=== PATIENT | male | born 1990 | race Caucasian/White ===

== ENCOUNTER 2017-02-24 20:28 | Emergency (ER) | payer BC, OTHER ==
[2017-02-24 20:35] VITALS: BP 137/97
--- NOTE | 2017-02-24 21:21 | EDM.PDOC ---
ED HPI GENERAL MEDICAL PROBLEM - General Chief Complaint: Genitourinary Problem Stated Complaint: GOT HIT BY A GATE AT WORK [id number] Time Seen by Provider: 02/24/17 21:05 Source of Information: Reports: Patient History Limitations: Reports: No limitations - History of Present Illness INITIAL COMMENTS - FREE TEXT/NARRATIVE: This 26 yo male patient reports to the ED with pain in his left groin and testicle. 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 The patient reports the gate hit him in the left groin and scrotum. The patient reports the injury happened at about 1400 today (7 hours ago). The patient has attempted to rest and ice the area, but his pain has continued. Onset: today Onset Date: 02/24/17 Onset Time: 14:00 Duration: Constant, Getting worse Location: Reports: other (left groin) Quality: Reports: Ache, Dull Severity: moderate Improves with: Reports: Rest Worsens with: Reports: Movement Treatments NEURODIAGNOSTIC TECH: Reports: Cold therapy Left Groin Pain Score (Numeric/FACES): 5 - Related Data Allergies Allergy/AdvReac Type Severity Reaction Status Date / Time No Known Allergies Allergy Verified 02/24/17 20:35 Home Meds: Home Meds LORazepam [Ativan] 1 mg PO Q8H PRN 02/24/17 [History] Venlafaxine [Effexor XR 24 Hr] 225 mg PO DAILY 02/24/17 [History] busPIRone [Buspar] 15 mg PO BID 02/24/17 [History] Past Medical History Psychiatric History: Reports: Anxiety - Past Surgical History HEENT Surgical History: Reports: Other (see below) Other HEENT Surgeries/Procedures: right ear surgery Social & Family History - Tobacco Use Smoking Status *Q: Never Smoker Second Hand Smoke Exposure: No - Recreational Drug Use Recreational Drug Use: No ED ROS GENERAL - Review of Systems Review Of Systems: ROS reveals no pertinent complaints other than HPI. ED EXAM, RENAL/ - Physical Exam Exam: See Below Exam Limited By: No limitations General Appearance: alert, WD/WN, moderate distress Eye Exam: bilateral eye: EOMI, normal inspection, PERRL Ears: normal external exam, normal canal, hearing grossly normal, normal TMs Nose: normal inspection, normal mucosa, no blood Throat/Mouth: Normal inspection, Normal lips, Normal teeth, Normal gums, Normal oropharynx, Normal voice, No airway compromise Head: atraumatic, normocephalic Neck: normal inspection, supple, non-tender, full range of motion Respiratory/Chest: no respiratory distress, lungs clear, normal breath sounds, no accessory muscle use, chest non-tender Cardiovascular: normal peripheral pulses, regular rate, rhythm, no edema, no gallop, no JVD, no murmur, no rub GI/Abdominal: Normal Bowel Sounds, Soft, Non-Tender, No Organomegaly, No Distention, No Abnormal Bruit, No Mass, Pelvis Stable (Male) Exam: No hernia, Circumcised, Cremasteric reflex, Scrotal swelling ( left), Scrotum tenderness (L) (left), Testicular tenderness (L) Rectal (Males) Exam: Deferred Back Exam: normal inspection, full range of motion, NT Extremities: normal inspection, normal range of motion, non-tender, normal capillary refill, no pedal edema Neurological: alert, oriented, CN II-XII intact, normal cognition, normal gait, normal reflexes, no motor/sensory deficits Psychiatric: normal affect, normal mood Skin Exam: Warm, Dry, Intact, Normal color, No rash Lymphatic: no adenopathy Course - Vital Signs Last Recorded V/S: Last Vital Signs Temp 36.2 C 02/24/17 20:31 Pulse 86 02/24/17 20:31 Resp 18 02/24/17 20:31 BP 137/97 H 02/24/17 20:31 Pulse Ox 97 02/24/17 20:31 - Orders/Labs/Meds Labs: Laboratory Tests 02/24/17 Range/Units 20:41 Urine Color Other (YELLOW) Urine Appearance Clear (CLEAR) Urine pH 6.0 (5.0-9.0) Ur Specific Mellen 1.010 (1.005-1.030) Urine Protein Negative (NEGATIVE) Urine Glucose (UA) Negative (NEGATIVE) Urine Ketones Negative (NEGATIVE) Urine Occult Blood Negative (NEGATIVE) Urine Nitrite Negative (NEGATIVE) Urine Bilirubin Negative (NEGATIVE) Urine Urobilinogen 0.2 (0.2-1.0) mg/dL Ur Leukocyte Esterase Negative (NEGATIVE) Urine RBC Not seen /HPF Urine WBC Not seen (0-5/HPF) /HPF Ur Epithelial Cells Rare /HPF Departure - Departure Time of Disposition: 22:12 Disposition: Home, Self-Care 01 Condition: good Clinical Impression: Contusion Qualifiers: Encounter type: initial encounter Contusion area: genitourinary tract structure Contusion of genitourinary structure detail: testes Qualified Code(s) : S30.22XA - Contusion of scrotum and testes, initial encounter - Discharge Information Instructions: Contusion, [id number] Forms: ED Department Discharge Care Plan Goals: The patient was advised of the examination, lab and ultrasound results during the visit. The patient was encouraged to rest, ice and elevate (the testicles) over the next 24 hours. The patient may take Tylenol or ibuprofen as directed for temporary symptom relief. If the patient has any additional symptoms or concerns, the patient should follow-up with his primary care facility or return to the emergency department.
== END 2017-02-24 22:26 | disposition home or self-care (01) ==
LOC: DL.ED 20:28
DX: S30.22XA Contusion of scrotum and testes, initial encounter (principal); F41.9 Anxiety disorder, unspecified; Z79.899 Other long term (current) drug therapy; W22.8XXA Striking against or struck by other objects, initial encounter; Y93.89 Activity, other specified
CPT/HCPCS: 76870; 81001; 99284

== ENCOUNTER 2019-12-24 14:51 | Emergency (ER) | payer BC ==
[2019-12-24 15:23] VITALS: BP 143/97; PULSE 89
--- NOTE | 2019-12-24 15:51 | EDM.PDOC ---
ED HPI GENERAL MEDICAL PROBLEM - General Chief Complaint: Laceration Stated Complaint: CUT ON HEAD Time Seen by Provider: 12/24/19 15:47 Source of Information: Reports: Patient History Limitations: Reports: No Limitations - History of Present Illness INITIAL COMMENTS - FREE TEXT/NARRATIVE: cut top of head when walked into a low hanging furnace. no LOC Anterior Head Pain Score (Numeric/FACES): 6 - Related Data Allergies Allergy/AdvReac Type Severity Reaction Status Date / Time No Known Allergies Allergy Verified 12/24/19 15:30 Home Meds: Home Meds LORazepam [Ativan] 1 mg PO Q8H PRN 02/24/17 [History] Venlafaxine [Effexor XR 24 Hr] 225 mg PO DAILY 02/24/17 [History] busPIRone [Buspar] 15 mg PO BID 02/24/17 [History] Past Medical History HEENT History: Reports: Impaired Vision Cardiovascular History: Reports: None Respiratory History: Reports: None Gastrointestinal History: Reports: None Genitourinary History: Reports: None Musculoskeletal History: Reports: None Neurological History: Reports: None Psychiatric History: Reports: Anxiety Endocrine/Metabolic History: Reports: None Hematologic History: Reports: None Immunologic History: Reports: None Oncologic (Cancer) History: Reports: None Dermatologic History: Reports: None - Infectious Disease History Infectious Disease History: Reports: None - Past Surgical History Head Surgeries/Procedures: Reports: None HEENT Surgical History: Reports: Other (See Below) Social & Family History - Family History Family Medical History: Noncontributory - Tobacco Use Smoking Status *Q: Never Smoker Second Hand Smoke Exposure: No - Caffeine Use Caffeine Use: Reports: Soda - Recreational Drug Use Recreational Drug Use: No ED ROS GENERAL - Review of Systems Review Of Systems: Comprehensive ROS is negative, except as noted in HPI. ED EXAM, SKIN/RASH Exam: See Below Exam Limited By: No Limitations General Appearance: Alert, WD/WN, No Apparent Distress Eye Exam: Bilateral Eye: PERRL (pupils ER @ 4mm) Ears: Hearing Grossly Normal Throat/Mouth: Normal Voice, No Airway Compromise Head: Other (left parietal lac) Neck: Non-Tender, Full Range of Motion Respiratory/Chest: No Respiratory Distress Cardiovascular: Regular Rate, Rhythm GI/Abdominal: Soft, Non-Tender Neurological: Alert, Oriented, Normal Cognition, Normal Gait, No Motor/Sensory Deficits Psychiatric: Normal Affect, Normal Mood Skin: Warm, Dry, Normal Color Location, Skin: Head ED SKIN PROCEDURES - Laceration/Wound Repair Left Head Appearance: Subcutaneous, Linear, Clean Skin Prep: Chlorhexidine (Hibiciens) Saline Irrigation (cc's): 20 Exploration/Debridement/Repair: Wound Explored, In a Bloodless Field Closed with: Dermabond, [place] Lac/Wound length In cm: 3 (left parietal) # of Sutures: 3 (sravan) Drain Placement: No Sterile Dressing Applied: None Tetanus Status Addressed: Yes Complications: No Course - Vital Signs Last Recorded V/S: Last Vital Signs Temp 36.2 C 12/24/19 15:22 Pulse 89 12/24/19 15:22 Resp 18 12/24/19 15:22 BP 143/97 H 12/24/19 15:22 Pulse Ox 96 12/24/19 15:22 Departure - Departure Time of Disposition: 16:01 Disposition: Home, Self-Care 01 Condition: Good Clinical Impression: Scalp laceration Qualifiers: Encounter type: initial encounter Qualified Code(s): S01.01XA - Laceration without foreign body of scalp, initial encounter - Discharge Information Instructions: Stitches, [place], or Adhesive Wound Closure, [id number] Forms: ED Department Discharge Additional Instructions: 1) keep wound clean and dry 2) don't wash hair for 48 hours 3) wound check if looks infected 4) staple removal 10 days Sepsis Event Note - Evaluation Sepsis Screening Result: No Definite Risk - Focused Exam Vital Signs: Vital Signs Temp Pulse Resp BP Pulse Ox 12/24/19 15:22 36.2 C 89 18 143/97 H 96 Date Exam was Performed: 12/24/19 Time Exam was Performed: 15:59
== END 2019-12-24 16:11 | disposition home or self-care (01) ==
LOC: DL.ED 14:51
DX: S01.01XA Laceration without foreign body of scalp, initial encounter (principal); F41.9 Anxiety disorder, unspecified; Z79.899 Other long term (current) drug therapy; W22.8XXA Striking against or struck by other objects, initial encounter
CPT/HCPCS: 12002; 99282

== ENCOUNTER 2020-11-10 15:51 | Emergency (ER) | payer BC ==
[2020-11-10 17:18] VITALS: BP 142/60; PULSE 74
[2020-11-10 17:49] LABS: CORONAVIRUS COVID-19 NAA NEGATIVE (NEGATIVE)
--- NOTE | 2020-11-10 17:49 | EDM.PDOC ---
ED HPI GENERAL MEDICAL PROBLEM - General Chief Complaint: ENT Problem Stated Complaint: SORE THROAT Time Seen by Provider: 11/10/20 17:46 Source of Information: Reports: Patient History Limitations: Reports: No Limitations - History of Present Illness INITIAL COMMENTS - FREE TEXT/NARRATIVE: ED with c/o sore throat since Wednesday. White patches, in clinic strep negative, Feels worse today harder to swallow and eat. radiates to ears. No cough, No nausea or vomiting. - Related Data Allergies Allergy/AdvReac Type Severity Reaction Status Date / Time No Known Allergies Allergy Verified 12/24/19 15:30 Home Meds: Home Meds LORazepam [Ativan] 1 mg PO Q8H PRN 02/24/17 [History] Venlafaxine [Effexor XR 24 Hr] 225 mg PO DAILY 02/24/17 [History] busPIRone [Buspar] 15 mg PO BID 02/24/17 [History] Past Medical History HEENT History: Reports: Impaired Vision Cardiovascular History: Reports: None Respiratory History: Reports: None Gastrointestinal History: Reports: None Genitourinary History: Reports: None Musculoskeletal History: Reports: None Neurological History: Reports: None Psychiatric History: Reports: Anxiety Endocrine/Metabolic History: Reports: None Hematologic History: Reports: None Immunologic History: Reports: None Oncologic (Cancer) History: Reports: None Dermatologic History: Reports: None - Infectious Disease History Infectious Disease History: Reports: None - Past Surgical History Head Surgeries/Procedures: Reports: None HEENT Surgical History: Reports: Other (See Below) Other HEENT Surgeries/Procedures: right ear surgery Social & Family History - Family History Family Medical History: No Pertinent Family History - Tobacco Use Tobacco Use Status *Q: Never Tobacco User - Caffeine Use Caffeine Use: Reports: None - Recreational Drug Use Recreational Drug Use: No ED ROS ENT - Review of Systems Review Of Systems: Comprehensive ROS is negative, except as noted in HPI. ED EXAM, ENT - Physical Exam Exam: See Below Exam Limited By: No Limitations General Appearance: Alert, Mild Distress Eye Exam: Bilateral Eye: EOMI Ears: Normal External Exam Nose: Normal Inspection Mouth/Throat: Tonsillar Erythema, Tonsillar Exudates, Tonsillar Swelling, Uvular Edema (mild). No: Uvular Deviation Head: Atraumatic, Normocephalic Neck: Lymphadenopathy (L), Lymphadenopathy (R) Respiratory/Chest: No Respiratory Distress, Lungs Clear, Normal Breath Sounds Cardiovascular: Normal Peripheral Pulses, Regular Rate, Rhythm GI/Abdominal: Normal Bowel Sounds Course - Vital Signs Last Recorded V/S: Last Vital Signs Temp 97.5 F 11/10/20 17:11 Pulse 74 11/10/20 17:11 Resp 18 11/10/20 17:11 BP 142/60 H 11/10/20 17:11 Pulse Ox 99 11/10/20 17:11 - Orders/Labs/Meds Labs: Laboratory Tests 11/10/20 Range/Units 17:00 Influenza Type A RNA Negative (NEGATIVE) Influenza Type B RNA Negative (NEGATIVE) SARS-CoV-2 RNA (LIO) Negative (NEGATIVE) Meds: Medications Discontinued Medications Generic Name Dose Route Start Last Admin Trade Name Irma PRN Reason Stop Dose Admin Amoxicillin/Clavulanate Potassium 1 tab 11/10/20 17:59 11/10/20 18:29 Augmentin 875 Mg/125 Mg PO 11/10/20 18:00 1 tab ONETIME ONE Administration Departure - Departure Time of Disposition: 18:00 Disposition: Home, Self-Care 01 Condition: Good Clinical Impression: Tonsillitis - Discharge Information *PRESCRIPTION DRUG MONITORING PROGRAM REVIEWED*: No *COPY OF PRESCRIPTION DRUG MONITORING REPORT IN PATIENT JUAN LUIS: No Instructions: Tonsillitis, [id number] Forms: ED Department Discharge Additional Instructions: increase fluids gargles chloraseptic throat spray as needed alternate tylenol and ibuprofen every 4 hours as needed for discomfort augmentin 875/ 125 one twice daily for 10 days urgent follow up if difficulty breathing or swallowing, , clinic follow up this week if not improving Sepsis Event Note (ED) - Evaluation Sepsis Screening Result: No Definite Risk
[2020-11-10] MEDS ORDERED: Amoxicillin/Clavulanate K 875-125 MG Tab PO ONE (17:59)
== END 2020-11-10 18:30 | disposition home or self-care (01) ==
LOC: DL.ED 15:51
DX: J03.90 Acute tonsillitis, unspecified (principal); Z20.822 Contact with and (suspected) exposure to COVID-19; Z79.899 Other long term (current) drug therapy
CPT/HCPCS: 0240U; 87081; 87430; 99283; A9270

== ENCOUNTER 2023-06-19 15:03 | Emergency (ER) | payer SELFPAY ==
[2023-06-19] MEDS ORDERED: Sodium Chloride 0.9% 10 ML Syringe FLUSH PRN (16:20)
[2023-06-19] MEDS ORDERED: Ondansetron 4 MG/2 ML SDV IV ONE (16:21)
[2023-06-19] MEDS ORDERED: Ketorolac 30 MG/ML SDV IVPUSH ONE (16:21)
[2023-06-19] MEDS ORDERED: Sodium Chloride 0.9% 1,000 ML IV ONE (16:21)
[2023-06-19 16:30] LABS: BASOPHILS PERCENT AUTO 0.1 % (0.0-1.0); EOSINOPHILS PERCENT AUTO 0.7 % (1.0-3.0); HEMATOCRIT 40.8 % (40.0-54.0); HEMOGLOBIN 14.5 g/dL (14.0-18.0); LYMPHOCYTES PERCENT AUTO 11.9 % (20.5-50.1); MEAN CORPUSCULAR HEMOGLOBIN 29.1 pg (27.0-34.0); MEAN CORPUSCULAR HGB CONC 35.5 g/dL (33.0-35.0); MEAN CORPUSCULAR VOLUME 81.8 fL (80-100); MONOCYTES PERCENT AUTO 6.6 % (2-8); NEUTROPHILS PERCENT AUTO 80.7 % (42.2-75.2); PLATELET COUNT,PLT 162 10^3/uL (150-450); RED BLOOD CELL COUNT 4.99 10^6/uL (4.6-6.2); WHITE BLOOD CELL COUNT,WBC 6.8 10^3/uL (5.0-10.0)
[2023-06-19 16:49] LABS: A/G RATIO 1.1; ALBUMIN 4.2 g/dL (3.4-5.0); ANION GAP 12.7 mEq/L (7-13); BILIRUBIN TOTAL 0.4 mg/dL (0.2-1.0); BUN/CREATININE RATIO 11.2 (No establ ref range); C-REACTIVE PROTEIN 0.6 mg/dL (0.0-0.9); CALCIUM 8.8 mg/dL (8.5-10.1); CREATININE 0.98 mg/dL (0.70-1.30); EST CRCL DRUG DOSING (CG) 117.39 mL/min; POTASSIUM,K 3.7 mmol/L (3.5-5.1)
[2023-06-19 16:50] LABS: LACTIC ACID 0.8 mmol/L (0.4-2.0)
[2023-06-19] MEDS ORDERED: Take Home: Ondansetron 4 MG Tab.DIS, 5 Tab Pack PO ONE (18:13)
[2023-06-19] MEDS ORDERED: Dicyclomine 10 MG Cap PO ONE (18:16)
[2023-06-19 18:26] VITALS: BP 117/89; PULSE 77
== END 2023-06-19 18:28 | disposition home or self-care (01) ==
LOC: DL.ED 15:03
DX: I88.0 Nonspecific mesenteric lymphadenitis (principal); K52.9 Noninfective gastroenteritis and colitis, unspecified
CPT/HCPCS: 36415; 74176; 80053; 83605; 83690; 84145; 85025; 86140; 96361; 96374; 96375; 99284; A9270; J1885; J2405; J7030; Q0162; J3490

== ENCOUNTER 2023-12-12 19:04 | Emergency (ER) | payer SELFPAY ==
[2023-12-12 19:57] LABS: APPEARANCE,URINE CLEAR (CLEAR); BILIRUBIN,URINE NEGATIVE (NEGATIVE); COLOR,URINE YELLOW (YELLOW); GLUCOSE,URINE NEGATIVE (NEGATIVE); KETONES,URINE NEGATIVE (NEGATIVE); LEUKOCYTE ESTERASE,URINE NEGATIVE (NEGATIVE); NITRITE,URINE NEGATIVE (NEGATIVE); OCCULT BLOOD,URINE TRACE-INTACT (NEGATIVE); PROTEIN,URINE NEGATIVE (NEGATIVE); UROBILINOGEN,URINE 0.2 mg/dL (0.2-1.0)
[2023-12-12 20:09] LABS: BACTERIA,URINE OCCASIONAL /HPF (0-FEW/HPF); EPITHELIAL CELLS,URINE RARE /HPF (NOT SEEN); MUCUS,URINE RARE /LPF (NOT SEEN); RBC,URINE 0-5 /HPF (0-5); WBC,URINE NOT SEEN /HPF (0-5/HPF)
[2023-12-12] MEDS: Levofloxacin 500 MG Tab PO ONE (20:30)
[2023-12-12 20:39] VITALS: BP 115/79; PULSE 90
== END 2023-12-12 20:32 | disposition home or self-care (01) ==
LOC: DL.ED 19:04
DX: N45.3 Epididymo-orchitis (principal)
CPT/HCPCS: 76870; 81001; 99284; A9270